=== PATIENT | male | born 1960 | race Caucasian/White ===

== ENCOUNTER → 2023-06-18 | Outpatient (REF) | payer MEDICARE, OTHER, SELFPAY | LOC: DHSLP | PROVIDERS: ATTENDING PHYSICIAN Internal Medicine | DX: G47.33 Obstructive sleep apnea (adult) (pediatric) (principal); R09.02 Hypoxemia | CPT/HCPCS: 95800 ==

== ENCOUNTER → 2023-11-04 13:28 | Outpatient (REF) | payer MEDICARE, OTHER, SELFPAY | LOC: RAD 13:28 | PROVIDERS: ATTENDING PHYSICIAN Internal Medicine | DX: Z87.891 Personal history of nicotine dependence (principal) | CPT/HCPCS: 71271 ==

== ENCOUNTER → 2025-02-05 07:29 | Outpatient (REF) | payer MEDICARE, OTHER, SELFPAY | LOC: RAD 07:29 | PROVIDERS: ATTENDING PHYSICIAN Internal Medicine | DX: Z87.891 Personal history of nicotine dependence (principal) | CPT/HCPCS: 71271 ==